=== PATIENT | male | born 1995 | race Asian ===

== ENCOUNTER 2020-06-09 20:35 | Emergency (ER) | payer OTHER ==
[~2020-06-09] VITALS: Ht 180.3 cm; Wt 63.6 kg
[2020-06-09 20:41] VITALS: BP 126/75; TEMP 98.8
[2020-06-09 21:21] VITALS: PULSE 54
== END 2020-06-09 21:21 | disposition home or self-care (01) ==
LOC: COL.ER 20:35
DX: S80.01XA Contusion of right knee, initial encounter (principal); W19.XXXA Unspecified fall, initial encounter; Y92.322 Soccer field as the place of occurrence of the external cause